=== PATIENT | female | born 1965 | race Caucasian/White ===

== ENCOUNTER 2017-02-19 21:20 | Emergency (ER) | payer BC ==
[2017-02-19] MEDS ORDERED: Tetracaine 0.5% 2 ML Bottle EYELF ONE (21:42)
--- NOTE | 2017-02-19 21:56 | EDM.PDOC ---
ED HPI GENERAL MEDICAL PROBLEM - General Chief Complaint: Eye Problems Stated Complaint: "something in my eye" Time Seen by Provider: 02/19/17 21:38 Source of Information: Reports: Patient History Limitations: Reports: No Limitations - History of Present Illness INITIAL COMMENTS - FREE TEXT/NARRATIVE: This patient is a pleasant 51 year old female that presents to the ER. Patient reports that this morning she was out working with her horses when she felt like she got something in her left eye. Patient reports she has a "gritty' sensation. She reports it feels like dirt, as it is dry outside per patient. The patient denies any injury. Patient denies marinelli, dizziness, n, v, d, f, vision loss, floaters, spots in vision. 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: Other (see below) Other Treatments SOFT WORK WRAPPER EXAMINER: flushed copiously Left Eye Pain Score (Numeric/FACES): 6 - Related Data Allergies Allergy/AdvReac Type Severity Reaction Status Date / Time Sulfa (Sulfonamide Allergy Fever Verified 02/19/17 21:25 Antibiotics) Home Meds: Home Meds Calcium Carb/Vit D3/Minerals [Calcium 600+D Plus Minerals] 1 tab PO DAILY [History] Multivitamin [Multi-Day Vitamins] 1 tab PO DAILY 08/03/15 [History] SUMAtriptan Succinate [Sumatriptan Succinate] 1 tab PO ASDIRECTED PRN 02/19/17 [ History] Past Medical History - Past Health History Medical/Surgical History: Denies Medical/Surgical History HEENT History: Reports: Impaired Vision Other HEENT History: wears glasses, has hematoma to right eye Cardiovascular History: Reports: None Respiratory History: Reports: None Gastrointestinal History: Reports: None Genitourinary History: Reports: UTI, Recurrent TIRE SPOTTER History: Reports: None Musculoskeletal History: Reports: None Neurological History: Reports: Migraines Psychiatric History: Reports: None Endocrine/Metabolic History: Reports: None Hematologic History: Reports: None Immunologic History: Reports: None Oncologic (Cancer) History: Reports: None Dermatologic History: Reports: None - Infectious Disease History Infectious Disease History: Reports: Chicken Pox, Mumps - Past Surgical History Head Surgeries/Procedures: Reports: None Social & Family History - Family History Family Medical History: Noncontributory - Tobacco Use Smoking Status *Q: Never Smoker Second Hand Smoke Exposure: No - Caffeine Use Caffeine Use: Reports: Coffee - Recreational Drug Use Recreational Drug Use: No - Living Situation & Occupation Living situation: Reports: , with Family Occupation: Employed ED ROS GENERAL - Review of Systems Review Of Systems: See Below Constitutional: Reports: No Symptoms HEENT: Reports: Eye Discharge (left watery), Eye Pain (left eye burning, irritation, gritty sensation. ). Denies: Contact Lenses Respiratory: Reports: No Symptoms Cardiovascular: Reports: No Symptoms Endocrine: Reports: No Symptoms GI/Abdominal: Reports: No Symptoms : Reports: No Symptoms Musculoskeletal: Reports: No Symptoms Skin: Reports: No Symptoms Neurological: Reports: No Symptoms Psychiatric: Reports: No Symptoms Hematologic/Lymphatic: Reports: No Symptoms Immunologic: Reports: No Symptoms ED EXAM GENERAL W FULL EYE - Physical Exam Exam: See Below Exam Limited By: No Limitations General Appearance: Alert, WD/WN, No Apparent Distress Eye Exam: Right Eye: Normal Inspection, Left Eye: Conjunctival Injection, Corneal Abrasion (small 9 o'clock), Bilateral Eye: EOMI, PERRL, Other (No FB seen.) Eyelids: Bilateral: Normal Appearance Conjunctiva & Sclera: Left: Discharge (clear watery. tearful. ), Injected Cornea Exam: Left: Corneal Abrasion (small), Examined with Flourescein Extraocular Movements: Bilateral: Intact Pupils: Normal Accommodation Pupillary Size: Bilateral: 4 mm Pupillary Reaction: Bilateral: Brisk Anterior Chamber: Bilateral: Normal Appearance Posterior Chamber: Bilateral: Normal Funduscopic Ears: Normal External Exam, Normal Canal, Hearing Grossly Normal, Normal TMs Nose: Normal Inspection, Normal Mucosa, No Blood Throat/Mouth: Normal Inspection, Normal Lips, Normal Teeth, Normal Gums, Normal Oropharynx, Normal Voice, No Airway Compromise Head: Atraumatic, Normocephalic Neck: Normal Inspection, Supple, Non-Tender, Full Range of Motion Respiratory/Chest: No Respiratory Distress, Lungs Clear, Normal Breath Sounds, No Accessory Muscle Use Cardiovascular: Normal Peripheral Pulses, Regular Rate, Rhythm, No Edema, No Gallop, No JVD, No Murmur, No Rub Extremities: Normal Inspection Neurological: Alert, Oriented, Normal Cognition, Normal Gait, No Motor/Sensory Deficits Psychiatric: Normal Affect, Normal Mood Skin Exam: Warm, Dry, Intact, Normal Color, No Rash Lymphatic: No Adenopathy Course - Vital Signs Last Recorded V/S: Last Vital Signs Temp 98.8 F 02/19/17 21:20 Pulse 66 02/19/17 21:20 Resp 16 02/19/17 21:20 BP 113/75 02/19/17 21:20 Pulse Ox 96 02/19/17 21:20 - Orders/Labs/Meds Orders: Active Orders 24 hr Category Date Time Status Eye Irrigation [RC] ASDIRECTED Care 02/19/17 21:58 Active Visual Acuity [Vision Test] [RC] ASDIRECTED Care 02/19/17 21:58 Active Departure - Departure Time of Disposition: 21:54 Disposition: Home, Self-Care 01 Condition: Good Clinical Impression: Corneal abrasion Qualifiers: Encounter type: initial encounter Laterality: left Qualified Code(s): S05.02XA - Injury of conjunctiva and corneal abrasion without foreign body, left eye, initial encounter - Discharge Information Instructions: Eye Foreign Body, [id number] Forms: ED Department Discharge Additional Instructions: Followup with [facility] Return to the ER for worsening of condition or any emergent concerns such as increase in redness, swelling, drainage, pain, fever, vomiting. Erythromycin 0pthalmic ointment use 6x a day while awake to the affected eye for 7 days #1 take home Followup with your primary care provider IbuProfen for pain - My Orders Last 24 Hours: My Active Orders 02/19/17 21:58 Eye Irrigation [RC] ASDIRECTED Visual Acuity [Vision Test] [RC] ASDIRECTED - Assessment/Plan Last 24 Hours: My Active Orders 02/19/17 21:58 Eye Irrigation [RC] ASDIRECTED Visual Acuity [Vision Test] [RC] ASDIRECTED Plan: PLEASE SEE RN NOTE FOR PFSH.
[2017-02-20 01:23] VITALS: BP 113/75
[2017-02-20] MEDS ORDERED: Erythromycin Base 0.5% Ophth Oint 3.5 GM Tube EYELF SCH (03:15)
== END 2017-02-19 22:10 | disposition home or self-care (01) ==
LOC: CC.ED 21:20
DX: S05.02XA Injury of conjunctiva and corneal abrasion without foreign body, left eye, initial encounter (principal); Z88.2 Allergy status to sulfonamides; Z79.899 Other long term (current) drug therapy; Z87.440 Personal history of urinary (tract) infections; Y99.0 Civilian activity done for income or pay
CPT/HCPCS: 99282; A9270-GY